=== PATIENT | female | born 1960 | race Caucasian/White ===

== ENCOUNTER 2017-02-14 22:37 | Observation (INO) | payer BC, OTHER ==
--- NOTE | 2017-02-14 22:46 | EDM.PDOC ---
ED HPI GENERAL MEDICAL PROBLEM - General Stated Complaint: CHEST PAIN Time Seen by Provider: 02/14/17 22:42 - History of Present Illness INITIAL COMMENTS - FREE TEXT/NARRATIVE: HISTORY AND PHYSICAL: History of present illness: Patient is a 56-year-old white female presents with concern of acute right- sided chest pain with associated shortness breath she denies fever chills nausea vomiting G other concern she denies trauma patient recently finished a course of Levaquin for a right-sided pneumonia. Review of systems: As per history of present illness and below otherwise all systems reviewed and negative. Past medical history: As per history of present illness and as reviewed below otherwise noncontributory. Surgical history: As per history of present illness and as reviewed below otherwise noncontributory. Social history: No reported history of drug or alcohol abuse. Family history: As per history of present illness and as reviewed below otherwise noncontributory. Physical exam: HEENT: Atraumatic, normocephalic, pupils reactive, negative for conjunctival pallor or scleral icterus, mucous membranes moist, throat clear, neck supple, nontender, trachea midline. Lungs: Diminished right-sided splinting noted, breath sounds equal bilaterally, chest nontender. Heart: S1S2, regular, negative for clicks, rubs, or JVD. Abdomen: Soft, nondistended, nontender. Negative for masses or hepatosplenomegaly. Negative for costovertebral tenderness. Pelvis: Stable nontender. Genitourinary: Deferred. Rectal: Deferred. Extremities: Atraumatic, negative for cords or calf pain. Neurovascular unremarkable. Neuro: Awake, alert, oriented. Cranial nerves II through XII unremarkable. Cerebellum unremarkable. Motor and sensory unremarkable throughout. Exam nonfocal. Diagnostics: CBC CMP PT/INR troponin EKG CTA chest Therapeutics: IV O2 monitor aspirin 324 mg Impression: #1 right-sided chest pain Definitive disposition and diagnosis as appropriate pending reevaluation and review of above. right chest Pain Score (Numeric/FACES): 10 - Related Data Allergies Allergy/AdvReac Type Severity Reaction Status Date / Time povidone-iodine Allergy Swelling Verified 02/14/17 22:58 [From Betadine] soap [From Betadine] Allergy Swelling Verified 02/14/17 22:58 Pain medications Allergy Stomach Uncoded 10/13/14 16:45 Upset Home Meds: Home Meds Cholecalciferol (Vitamin D3) [Vitamin D3] 1,000 unit PO DAILY 10/13/14 [History] Estradiol 2 mg PO QAM 10/13/14 [History] Glimepiride 4 mg PO BIDMEALS 10/13/14 [History] Montelukast Sodium 10 mg PO BEDTIME 10/13/14 [History] Pantoprazole Sodium 40 mg PO BEDTIME 10/13/14 [History] Pedi Multivit #22/Vit D3/Vit K [Multivitamins Chewables Tablet] 1 tab PO DAILY 10/13/14 [History] metFORMIN HCl [Metformin HCl] 250 mg PO BEDTIME 10/13/14 [History] Fish Oil/[place]-3 Fatty Acids [Fish Oil] 1 cap PO DAILY 10/18/14 [History] Losartan/Hydrochlorothiazide [Losartan-HCTZ 50-12.5 MG] 1 tab PO DAILY 10/18/14 [History] Acetaminophen/HYDROcodone [[place] 325-10 MG] 1 - 2 tab PO Q4H PRN #80 tablet 04/04 [Rx] Celecoxib [CeleBREX] 200 mg PO DAILY #30 cap 10/20/14 [Rx] Docusate Sodium [Colace] 100 mg PO BID #60 cap 10/20/14 [Rx] Gabapentin [Neurontin] 300 mg PO BEDTIME #30 cap 10/20/14 [Rx] Rivaroxaban [Xarelto] 10 mg PO DAILY #12 tablet 10/20/14 [Rx] traMADol [Ultram] 100 mg PO Q6H PRN #80 tablet 10/20/14 [Rx] Past Medical History Other Respiratory History: History of smoking for 15 yrs, QUIT 20 yrs ago, Sleep apnea with machine (will bring) Other Gastrointestinal History: Heartburn reports controlled with Pantoprazole Other Musculoskeletal History: Right hip pain, related to compensating for pain in knee, 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 love has fused 'grown over well') Social & Family History - Tobacco Use Smoking Status *Q: Former Smoker Years of Tobacco use: 15 - Recreational Drug Use Recreational Drug Use: No Drug Use in Last 12 Months: No ED ROS GENERAL - Review of Systems Review Of Systems: ROS reveals no pertinent complaints other than HPI. ED EXAM, GENERAL - Physical Exam Exam: See Below (See dictation) Course - Vital Signs Last Recorded V/S: Last Vital Signs Temp 36.4 C 02/14/17 22:37 Pulse 88 02/14/17 23:25 Resp 18 02/14/17 23:25 BP 131/86 02/14/17 23:25 Pulse Ox 98 02/14/17 23:25 - Orders/Labs/Meds Orders: Active Orders 24 hr Category Date Time Status Cardiac Monitoring [RC] . DIRECTED Care 02/14/17 22:47 Active EKG Documentation Completion [RC] STAT Care 02/14/17 22:47 Active Oxygen Therapy, ED [RC] ASDIRECTED Care 02/14/17 23:06 Active CTA Chest W WO Contrast [Ang Chest] [CT] Stat Exams 02/14/17 23:03 Taken URINALYSIS W/MICROSCOPIC [UA W/MICROSCOPIC] [URIN] Stat Lab 02/14/17 22:48 Uncollected Sodium Chloride 0.9% [Saline Flush] Med 02/14/17 23:06 Active 10 ml FLUSH ASDIRECTED PRN Sodium Chloride 0.9% [Saline Flush] Med 02/14/17 23:06 Active 2.5 ml FLUSH ASDIRECTED PRN Saline Lock Insert [OM.PC] Stat Oth 02/14/17 23:06 Ordered Medication Orders Sodium Chloride (Saline Flush) 10 ml FLUSH ASDIRECTED PRN PRN Reason: Keep Vein Open Sodium Chloride (Saline Flush) 2.5 ml FLUSH ASDIRECTED PRN PRN Reason: Keep Vein Open Labs: Laboratory Tests 02/14/17 02/14/17 02/14/17 Range/Units 22:55 22:55 22:55 WBC 10.36 (4.0-11.0) K/uL RBC 4.97 (4.30-5.90) M/uL Hgb 14.1 (12.0-16.0) g/dL Hct 41.6 (36.0-46.0) % MCV 83.7 (80.0-98.0) fL MCH 28.4 (27.0-32.0) pg MCHC 33.9 (31.0-37.0) g/dL RDW Std Deviation 41.5 (28.0-62.0) fl RDW Coeff of Nat 14 (11.0-15.0) % Plt Count 221 (150-400) K/uL MPV 11.20 (7.40-12.00) fL Neut % (Auto) 63.4 (48.0-80.0) % Lymph % (Auto) 27.0 (16.0-40.0) % [place] % (Auto) 7.8 (0.0-15.0) % Eos % (Auto) 1.4 (0.0-7.0) % Baso % (Auto) 0.4 (0.0-1.5) % Neut # (Auto) 6.6 H (1.4-5.7) K/uL Lymph # (Auto) 2.8 H (0.6-2.4) K/uL [place] # (Auto) 0.8 (0.0-0.8) K/uL Eos # (Auto) 0.1 (0.0-0.7) K/uL Baso # (Auto) 0.0 (0.0-0.1) K/uL Nucleated RBC % 0.0 /100WBC Nucleated RBCs # 0 K/uL INR 1.01 (0.86-1.11) D-Dimer, Quantitative 0.79 H (0.0-0.52) mg/LFEU Sodium 136 (136-146) mmol/L Potassium 3.6 (3.5-5.1) mmol/L Chloride 100 (98-110) mmol/L Carbon Dioxide 25 (21-31) mmol/L BUN 17 (6.0-23.0) mg/dL Creatinine 1.0 (0.6-1.5) mg/dL Est Cr Clr Drug Dosing TNP Estimated GFR (MDRD) 56.9 ml/min Glucose 232 H (60-110) mg/dL Calcium 9.3 (8.8-10.8) mg/dL Total Bilirubin 0.2 (0.1-1.5) mg/dL AST 13 (5-40) IU/L ALT 19 (8-54) IU/L Alkaline Phosphatase 124 (40-150) Creatine Kinase 79 (9-236) IU/L CK-MB (CK-2) 1.5 (0-6.6) ng/ml Troponin I < 0.10 (0.0-0.29) NG/ML Total Protein 8.0 (6.0-8.0) g/dL Albumin 4.0 (3.5-5.0) g/dL Globulin 4.0 H (2.0-3.5) g/dL Albumin/Globulin Ratio 1.0 L (1.3-2.8) Meds: Medications Generic Name Dose Route Start Last Admin Trade Name Freq PRN Reason Stop Dose Admin Sodium Chloride 10 ml 02/14/17 23:06 Saline Flush FLUSH ASDIRECTED PRN Keep Vein Open Sodium Chloride 2.5 ml 02/14/17 23:06 Saline Flush FLUSH ASDIRECTED PRN Keep Vein Open Discontinued Medications Generic Name Dose Route Start Last Admin Trade Name Freq PRN Reason Stop Dose Admin Hydromorphone HCl 1 mg 02/14/17 23:16 02/14/17 23:34 Dilaudid IM 02/14/17 23:17 Not Given ONETIME ONE Hydromorphone HCl 1 mg 02/14/17 23:32 02/14/17 23:30 Dilaudid IV 02/14/17 23:33 1 mg ONETIME ONE Administration Lorazepam 1 mg 02/14/17 23:16 02/14/17 23:25 Ativan IVPUSH 02/14/17 23:17 1 mg ONETIME ONE Administration Departure - Departure Time of Disposition: 23:44 Disposition: Refer to Observation Condition: Good Clinical Impression: Chest pain, History of pneumonia - Discharge Information Referrals: PCP,None [Primary Care Provider] - - My Orders Last 24 Hours: My Active Orders 02/14/17 22:47 Cardiac Monitoring [RC] . DIRECTED EKG Documentation Completion [RC] STAT 02/14/17 22:48 URINALYSIS W/MICROSCOPIC [UA W/MICROSCOPIC] [URIN] Stat 02/14/17 23:03 CTA Chest W WO Contrast [Ang Chest] [CT] Stat 02/14/17 23:06 Oxygen Therapy, ED [RC] ASDIRECTED Sodium Chloride 0.9% [Saline Flush] 10 ml FLUSH ASDIRECTED PRN Sodium Chloride 0.9% [Saline Flush] 2.5 ml FLUSH ASDIRECTED PRN Saline Lock Insert [OM.PC] Stat - Assessment/Plan Last 24 Hours: My Active Orders 02/14/17 22:47 Cardiac Monitoring [RC] . DIRECTED EKG Documentation Completion [RC] STAT 02/14/17 22:48 URINALYSIS W/MICROSCOPIC [UA W/MICROSCOPIC] [URIN] Stat 02/14/17 23:03 CTA Chest W WO Contrast [Ang Chest] [CT] Stat 02/14/17 23:06 Oxygen Therapy, ED [RC] ASDIRECTED Sodium Chloride 0.9% [Saline Flush] 10 ml FLUSH ASDIRECTED PRN Sodium Chloride 0.9% [Saline Flush] 2.5 ml FLUSH ASDIRECTED PRN Saline Lock Insert [OM.PC] Stat
[2017-02-14] MEDS ORDERED: Sodium Chloride 0.9% 2.5 ML Syringe FLUSH PRN (23:06)
[2017-02-14] MEDS ORDERED: Sodium Chloride 0.9% 10 ML Syringe FLUSH PRN (23:06)
[2017-02-14] MEDS ORDERED: LORazepam 2 MG/ML MDV IVPUSH ONE (23:16)
[2017-02-14 23:22] LABS: CHLORIDE,CL 100 mmol/L (98-110); SODIUM,NA 136 mmol/L (136-146)
[2017-02-14] MEDS: HYDROmorphone 1 MG/ML Syringe IM ONE ×2 (23:31→23:34)
[2017-02-14] MEDS ORDERED: HYDROmorphone 1 MG/ML Syringe IV ONE (23:32)
[2017-02-14] MEDS ORDERED: Ondansetron 4 MG/2 ML SDV IVPUSH PRN (23:59)
[2017-02-14] MEDS ORDERED: Albuterol/Ipratropium 3.0-0.5 MG/3 ML Neb Soln NEB PRN (23:59)
[2017-02-15] MEDS ORDERED: Azithromycin 500 MG in Sodium Chloride 0.9% 250 ML IV SCH (00:15)
[2017-02-15] MEDS ORDERED: cefTRIAXone 1,000 MG VIAL IVPUSH SCH (00:15)
[2017-02-15] MEDS: cefTRIAXone 1 GM in Premix Bag 1 BAG IV SCH (00:55)
[2017-02-15] MEDS: Morphine 10 MG/ML Syringe IVPUSH PRN ×2 (04:14→09:03)
[2017-02-15 05:27] LABS: CHLORIDE,CL 103 mmol/L (98-110); SODIUM,NA 134 mmol/L (136-146)
[2017-02-15] MEDS: Insulin Aspart 100 Units/ML 3 ML Pen SUBCUT SCH ×3 (06:40→16:54)
[2017-02-15] MEDS ORDERED: Iopamidol 755 MG/ML 500 ML Multipack Bottle IVPUSH STA (06:53)
[2017-02-15] MEDS ORDERED: Albuterol 8 GM Inhaler INH PRN (08:26)
[2017-02-15] MEDS: Cholecalciferol (Vitamin D3) 1,000 Unit Tab PO SCH (08:53)
[2017-02-15] MEDS: Hydrochlorothiazide/Losartan 12.5-50 mg Tab PO SCH (08:53)
[2017-02-15] MEDS: Fish Oil/Omega-3 Fatty Acids 1 Gm Cap PO SCH (08:53)
--- NOTE | 2017-02-15 09:39 | PCM.HP ---
H&P History of Present Illness - General Date of Service: 02/15/17 Admit Problem/Dx: Admission Diagnosis/Problem Admission Diagnosis/Problem Chest pain Source of Information: Patient History Limitations: Reports: No Limitations - History of Present Illness Initial Comments - Free Text/Narative: This 56 year old female with pmh of DM type 2, ALCIRA with CPAP,GERD, hx of tobacco use quit 20 years ago, and multiple neck and spinal surgeries presented to the ED last evening with concerns of R sided chest pain and shortness of breath. She reports she has been treated sick Jan 29 with antibiotics for a R sided pneumonia along with ear infection. Initially she was start on Cefadroxil for PNA and ear infection Jan 29, which she had wait approximately 2 weeks to get checked out. She reports she then didn't really feel any better after finishing treatment and then went back. This is when she received a course of Levaquin, which she just finished 02/14. She continues to feel like she has not improved at home. She initially had some fevers at home, sinus congestion and ear pain along with scant R sided chest pain. The URI symptoms have improved, but the R sided chest pain has worsened and the general malaise and fatigue have not improved. She reports some hot and cold flashes at home, but no documented fever at home. She denies cough or sinus congestion. No sore throat. No left sided chest pain. In the ED no leukocytosis noted, VS all stable. D dimer was noted to be elevated slightly 0.79, CT angio was ordered and revealed. "No CT evidence of pulmonary emboli seen. There is a subpleural consolidation in the posterior right apex that measures 2.8 x 1.5 cm. This may represent a pneumonic infiltrate but followup radiographs are recommended to document resolution and exclude a pulmonary mass. Trace right pleural effusion noted". She was treated with Azithromycin and Rocephin. Troponin x2 have been negative and EKG SR. She was admitted for R sided chest pain and failed outpatient treatment of CAP. PCP, [facility] right chest Pain Score (Numeric/FACES): 5 - Related Data Allergies/Adverse Reactions: Allergies Allergy/AdvReac Type Severity Reaction Status Date / Time povidone-iodine Allergy Swelling Verified 02/14/17 22:58 [From Betadine] soap [From Betadine] Allergy Swelling Verified 02/14/17 22:58 Pain medications Allergy Stomach Uncoded 10/13/14 16:45 Upset Home Medications: Home Meds Cholecalciferol (Vitamin D3) [Vitamin D3] 1,000 unit PO DAILY 10/13/14 [History] Montelukast Sodium 10 mg PO BEDTIME 10/13/14 [History] Fish Oil/Red Oak-3 Fatty Acids [Fish Oil] 500 mg PO DAILY 10/18/14 [History] Losartan/Hydrochlorothiazide [Losartan-HCTZ 50-12.5 MG] 1 tab PO DAILY 10/18/14 [History] traMADol [Ultram] 100 mg PO Q6H PRN #80 tablet 10/20/14 [Rx] Albuterol Sulfate [Proair Respiclick] 2 puff IH ASDIRECTED PRN 02/15/17 [History ] Cefadroxil [Cefadroxil] 500 mg PO DAILY 02/15/17 [History] Empagliflozin [Jardiance] 10 mg PO DAILY 02/15/17 [History] Phentermine HCl 30 mg PO DAILY 02/15/17 [History] Saxagliptin HCl [Onglyza] 5 mg PO DAILY 02/15/17 [History] Terconazole 20 gm VG BEDTIME 02/15/17 [History] Past Medical History - Past Health History Medical/Surgical History: Denies Medical/Surgical History HEENT History: Reports: Impaired Vision, Other (See Below) Other HEENT History: wears glasses Cardiovascular History: Reports: None. Denies: Afib, Blood Clots/VTE/DVT, CAD, High Cholesterol, Hypertension, VT Respiratory History: Reports: Sleep Apnea (Uses CPAP at home.) Other Respiratory History: History of smoking for 15 yrs, QUIT 20 yrs ago Gastrointestinal History: Reports: [employer] History: Reports: Musculoskeletal History: Reports: Arthritis, Back Pain, Chronic Neurological History: Reports: None. Denies: CVA, TIA Endocrine/Metabolic History: Reports: Diabetes, Type II, Obesity/BMI 30+. Denies: Hypothyroidism Hematologic History: Reports: None - Infectious Disease History Infectious Disease History: Reports: Chicken Pox, Measles, Shingles - Past Surgical History Respiratory Surgical History: Reports: None GI Surgical History: Reports: Cholecystectomy Female Surgical History: Reports: Hysterectomy Endocrine Surgical History: Reports: None Neurological Surgical History: Reports: C-Spine (C5-7 fusion "cage"), Lumbar Spine Musculoskeletal Surgical History: Reports: Knee Replacement Social & Family History - Family History Family Medical History: Noncontributory - Tobacco Use Smoking Status *Q: Former Smoker Years of Tobacco use: 15 Used Tobacco, but Quit: Yes Month Tobacco Last Used: 20 yrs ago Second Hand Smoke Exposure: No - Caffeine Use Caffeine Use: Reports: Coffee Caffeine Use Comment: decaff - Alcohol Use Alcohol Use Frequency: Rarely, Socially - Recreational Drug Use Recreational Drug Use: No Drug Use in Last 12 Months: No - Living Situation & Occupation Living situation: Reports: Occupation: Employed H&P Review of Systems - Review of Systems: Review Of Systems: See Below General: Reports: Fever (no documented fever, but hot flashes), Chills, Malaise , Fatigue, Decreased Appetite HEENT: Reports: No Symptoms. Denies: Ear Pain, Headaches, Hearing Changes, Sinus Congestion, Sore Throat, Visual Changes Pulmonary: Reports: Shortness of Breath, Pleuritic Chest Pain (R sided when taking deep breath). Denies: Wheezing, Cough, Hemoptysis Cardiovascular: Reports: No Symptoms. Denies: Chest Pain, Edema, Lightheadedness, Syncope Gastrointestinal: Reports: Decreased Appetite. Denies: Abdominal Pain, Black Stool, Bloody Stool, Flatus, Nausea, Vomiting Genitourinary: Reports: No Symptoms. Denies: Dysuria, Frequency, Burning, Pain Musculoskeletal: Reports: No Symptoms. Denies: Neck Pain, Back Pain, Muscle Stiffness Skin: Reports: No Symptoms Psychiatric: Reports: No Symptoms. Denies: Confusion Neurological: Reports: No Symptoms. Denies: Confusion Hematologic/Lymphatic: Reports: No Symptoms. Denies: Anemia Exam - Exam Exam: See Below - Vital Signs Vital Signs: Last Vital Signs Temp 97.0 F 02/15/17 08:00 Pulse 84 02/15/17 08:00 Resp 16 02/15/17 08:00 BP 115/71 02/15/17 08:00 Pulse Ox 97 02/15/17 08:00 Weight: 105 kg - Exam Quality Assessment: Supplemental Oxygen, DVT Prophylaxis General: Alert, Oriented, Cooperative, Other (patient appears to not feel well.) HEENT: Conjunctiva Clear, Hearing Intact, Mucosa Moist & [place], Posterior Pharynx Clear, TMs Clear, Other (flushed cheeks noted) Neck: Supple, Trachea Midline, Full Range of Motion. No: Lymphadenopathy Lungs: Normal Respiratory Effort, Crackles (R mid lung ) Cardiovascular: Regular Rate, Regular Rhythm, Normal S1, Normal S2, Other (No chest pain to palpation of R sided chest wall. Hurts under R breast and inside. ) GI/Abdominal Exam: Normal Bowel Sounds, Soft, Non-Tender, No Organomegaly, No Distention, No Abnormal Bruit, No Mass, Pelvis Stable, Other (obese abdomen, negative amin's sign). No: Distended Extremities: Normal Inspection, Normal Range of Motion, Non-Tender, No Pedal Edema, Normal Capillary Refill - Patient Data Lab Results Last 24 hrs: Laboratory Results - last 24 hr 02/15/17 02/15/17 02/15/17 Range/Units 00:00 04:41 04:41 WBC 12.60 H (4.0-11.0) K/uL RBC 4.68 (4.30-5.90) M/uL Hgb 13.0 (12.0-16.0) g/dL Hct 39.0 (36.0-46.0) % MCV 83.3 (80.0-98.0) fL MCH 27.8 (27.0-32.0) pg MCHC 33.3 (31.0-37.0) g/dL RDW Std Deviation 41.0 (28.0-62.0) fl RDW Coeff of Nat 14 (11.0-15.0) % Plt Count 182 (150-400) K/uL MPV 11.90 (7.40-12.00) fL Nucleated RBC % 0.0 /100WBC Nucleated RBCs # 0 K/uL Sodium 134 L (136-146) mmol/L Potassium 4.0 (3.5-5.1) mmol/L Chloride 103 (98-110) mmol/L Carbon Dioxide 23 (21-31) mmol/L BUN 16 (6.0-23.0) mg/dL Creatinine 0.7 (0.6-1.5) mg/dL Est Cr Clr Drug Dosing 72.47 mL/min Estimated GFR (MDRD) > 60.0 ml/min Glucose 200 H (60-110) mg/dL POC Glucose (60-110) mg/dL Calcium 8.9 (8.8-10.8) mg/dL Troponin I (0.0-0.29) NG/ML Urine Color YELLOW Urine Appearance CLEAR Urine pH 6.0 (5.0-8.0) Ur Specific Loman <= 1.005 (1.001-1.035) Urine Protein NEGATIVE (NEGATIVE) mg/dL Urine Glucose (UA) >=1000 (NEGATIVE) mg/dL Urine Ketones NEGATIVE (NEGATIVE) mg/dL Urine Occult Blood NEGATIVE (NEGATIVE) Urine Nitrite NEGATIVE (NEGATIVE) Urine Bilirubin NEGATIVE (NEGATIVE) Urine Urobilinogen 0.2 (<2.0) EU/dL Ur Leukocyte Esterase NEGATIVE (NEGATIVE) Urine RBC 0-2 (0-2/HPF) Urine WBC 2-4 (0-5/HPF) Ur Epithelial Cells FEW (NONE-FEW) Urine Bacteria FEW (NEGATIVE) 02/15/17 02/15/17 Range/Units 04:41 06:19 WBC (4.0-11.0) K/uL RBC (4.30-5.90) M/uL Hgb (12.0-16.0) g/dL Hct (36.0-46.0) % MCV (80.0-98.0) fL MCH (27.0-32.0) pg MCHC (31.0-37.0) g/dL RDW Std Deviation (28.0-62.0) fl RDW Coeff of Nat (11.0-15.0) % Plt Count (150-400) K/uL MPV (7.40-12.00) fL Nucleated RBC % /100WBC Nucleated RBCs # K/uL Sodium (136-146) mmol/L Potassium (3.5-5.1) mmol/L Chloride (98-110) mmol/L Carbon Dioxide (21-31) mmol/L BUN (6.0-23.0) mg/dL Creatinine (0.6-1.5) mg/dL Est Cr Clr Drug Dosing mL/min Estimated GFR (MDRD) ml/min Glucose (60-110) mg/dL POC Glucose 136 H (60-110) mg/dL Calcium (8.8-10.8) mg/dL Troponin I < 0.10 (0.0-0.29) NG/ML Urine Color Urine Appearance Urine pH (5.0-8.0) Ur Specific Loman (1.001-1.035) Urine Protein (NEGATIVE) mg/dL Urine Glucose (UA) (NEGATIVE) mg/dL Urine Ketones (NEGATIVE) mg/dL Urine Occult Blood (NEGATIVE) Urine Nitrite (NEGATIVE) Urine Bilirubin (NEGATIVE) Urine Urobilinogen (<2.0) EU/dL Ur Leukocyte Esterase (NEGATIVE) Urine RBC (0-2/HPF) Urine WBC (0-5/HPF) Ur Epithelial Cells (NONE-FEW) Urine Bacteria (NEGATIVE) Result Diagrams: 02/15/17 04:41 02/15/17 04:41 *Q Meaningful Use (ADM) - VTE *Q VTE Criteria *Q: - Stroke *Q Stroke Criteria *Q: - AMI *Q AMI Criteria *Q: - Problem List (1) Right-sided chest pain SNOMED Code(s): 346618674 ICD Code: R07.9 - CHEST PAIN, UNSPECIFIED Status: Acute Current Visit: Yes (2) Community acquired pneumonia SNOMED Code(s): 534799891 ICD Code: J18.9 - PNEUMONIA, UNSPECIFIED ORGANISM Status: Acute Current Visit: Yes Qualifiers: Laterality: right Lung location: upper lobe of lung Qualified Code(s): J18.1 - Lobar pneumonia, unspecified organism (3) ALCIRA (obstructive sleep apnea) SNOMED Code(s): 21472400 ICD Code: G47.33 - OBSTRUCTIVE SLEEP APNEA (ADULT) (PEDIATRIC) Status: Chronic Current Visit: Yes (4) DM type 2 (diabetes mellitus, type 2) SNOMED Code(s): 26727812 ICD Code: E11.9 - TYPE 2 DIABETES MELLITUS WITHOUT COMPLICATIONS Status: Chronic Current Visit: Yes Qualifiers: Diabetes mellitus complication status: without complication Diabetes mellitus termite technician insulin use: without termite technician use Qualified Code(s): E11.9 - Type 2 diabetes mellitus without complications (5) History of tobacco use SNOMED Code(s): 6706601448828 ICD Code: Z87.891 - PERSONAL HISTORY OF NICOTINE DEPENDENCE Status: Chronic Current Visit: Yes Problem List Initiated/Reviewed/Updated: Yes Orders Last 24hrs: Active Orders 24 hr Category Date Time Status Antiembolic Devices [RC] PER UNIT ROUTINE Care 02/15/17 00:00 Active Blood Glucose Check, Bedside [RC] TIDAC Care 02/15/17 00:02 Active Oxygen Therapy [RC] PRN Care 02/14/17 23:59 Active RT Aerosol Therapy [RC] ASDIRECTED Care 02/15/17 00:00 Active Telemetry Monitoring [Cardiac Monitoring] [RC] . Care 02/15/17 00:22 Active DIRECTED VTE/DVT Education [RC] PER UNIT ROUTINE Care 02/14/17 23:59 Active Vital Signs [RC] Q4H Care 02/14/17 23:59 Active CULTURE BLOOD [BC] Stat Lab 02/15/17 00:24 Received CULTURE BLOOD [BC] Stat Lab 02/15/17 00:30 Received CULTURE SPUTUM + SMEAR [RM] Routine Lab 02/15/17 00:06 Uncollected TROPONIN I [CHEM] Q6H Lab 02/15/17 11:00 Ordered Albuterol [Ventolin HFA] Med 02/15/17 08:26 Active 2 gm INH ASDIRECTED PRN Albuterol/Ipratropium [DuoNeb 3.0-0.5 MG/3 ML] Med 02/14/17 23:59 Active 3 ml NEB Q4HRRT PRN Azithromycin [Zithromax] 500 mg Med 02/15/17 00:15 Active Sodium Chloride 0.9% [Normal Saline] 250 ml IV Q24H Cholecalciferol (Vitamin D3) [Vitamin D3] Med 02/15/17 09:00 Active 1,000 units PO DAILY Fish Oil/Red Oak-3 Fatty Acids [Fish Oil] Med 02/15/17 09:00 Active 1 gm PO DAILY Hydrochlorothiazide/Losartan [Hyzaar 50-12.5 MG] Med 02/15/17 09:00 Active 1 tab PO DAILY Insulin Aspart [NovoLOG] Med 02/15/17 07:30 Active See Protocol SUBCUT TIDAC Montelukast [Singulair] Med 02/15/17 21:00 Active 10 mg PO BEDTIME Morphine Med 02/14/17 23:59 Active 2 mg IVPUSH Q3H PRN Ondansetron [Zofran] Med 02/14/17 23:59 Active 4 mg IVPUSH Q4H PRN Patient's Own Medication [Ptom] Med 02/15/17 21:00 Active 1 each VAG BEDTIME cefTRIAXone [Rocephin in Dextrose,Iso-Osm 1 GM/50 ML] 1 Med 02/15/17 00:30 Active gm Premix Bag 1 bag IV Q24H Blood Culture x2 Reflex Set [OM.PC] Stat Oth 02/15/17 00:06 Ordered Sequential Compression Device [OM.PC] Per Unit Routine Oth 02/14/17 23:59 Ordered Resuscitation Status Routine Resus Stat 02/14/17 23:59 Ordered Medication Orders Albuterol (Ventolin Hfa) 2 gm INH ASDIRECTED PRN PRN Reason: Shortness of Breath Albuterol/Ipratropium (Duoneb 3.0-0.5 Mg/3 Ml) 3 ml NEB Q4HRRT PRN PRN Reason: Shortness Of Breath/wheezing Cholecalciferol (Vitamin D3) 1,000 units PO DAILY [facility] Last Admin: 02/15/17 08:53 Dose: 1,000 units Fish Oil (Fish Oil) 1 gm PO DAILY [facility] Last Admin: 02/15/17 08:53 Dose: 1 gm HCTZ/Losartan Potassium (Hyzaar 50-12.5 Mg) 1 tab PO DAILY [facility] Last Admin: 02/15/17 08:53 Dose: 1 tab Azithromycin 500 mg/ Sodium (Chloride) 250 mls @ 250 mls/hr IV Q24H [facility] Last Admin: 02/15/17 01:33 Dose: 250 mls/hr Ceftriaxone Sodium/Dextrose 1 (gm/ Premix) 50 mls @ 100 mls/hr IV Q24H [facility] Last Admin: 02/15/17 00:55 Dose: 100 mls/hr Insulin Aspart (Novolog) 0 unit SUBCUT TIDAC [place] PRN Reason: Protocol Last Admin: 02/15/17 06:40 Dose: Not Given Montelukast Sodium (Singulair) 10 mg PO BEDTIME [facility] Morphine Sulfate (Morphine) 2 mg IVPUSH Q3H PRN PRN Reason: Pain (severe 7-10) Stop: 02/15/17 23:59 Last Admin: 02/15/17 09:03 Dose: 2 mg Admin: 02/15/17 04:14 Dose: 2 mg Ondansetron HCl (Zofran) 4 mg IVPUSH Q4H PRN PRN Reason: Nausea Last Admin: 02/15/17 00:32 Dose: 4 mg Terconazole [ (Terconazole] 20 Gm) 1 each VAG BEDTIME [facility] Sodium Chloride (Saline Flush) 10 ml FLUSH ASDIRECTED PRN PRN Reason: Keep Vein Open Sodium Chloride (Saline Flush) 2.5 ml FLUSH ASDIRECTED PRN PRN Reason: Keep Vein Open Assessment/Plan Comment:: This 56 year old male admitted with suspected failed outpatient treatment of CAP and right sided chest pain 1. Chest pain: All right sided, troponins all negative, does not sound cardiac. Hurts with deep breathing. ACS ruled out 2. Suspected failed outpatient management of CAP: Infiltrate noted on CT angio, could this be sequela from recently treated pneumonia or failed outpatient management with 2 antibiotics. Influenza negative. With tobacco use history she was warned there may be more than pneumonia present. We recommend follow up with [facility] for possible biopsy of this area and repeat CT imaging to insure clearing. Patient is well aware of this and is agreeable for us to set up referral to [facility]. WBC did elevated slightly to 12, 600 this morning. Will continue Rocephin and Azithromycin and monitor overnight. Continues to have R sided chest pain with deep breathing and it causes SOB, because it "catches" and send shooting spasm like pain through this area. Tramadol started today, will trial this instead of Morphine. 3. DM type 2: Will hold PO meds and Continue with Novolov SSI, reports BS at home run 150-180s typically. 4. ALCIRA with CPAP use: Highly encouraged to clean/sterilize mask/tubing daily to insure she is not getting sick from dirty supplies. Will send new prescription for mask and supplies to [facility] today. S VTE prophylaxis: SCDs Dispo: possibly in am.
[2017-02-15] MEDS: traMADol 50 MG Tab PO PRN ×2 (15:18→22:15)
--- NOTE | 2017-02-15 15:56 | CT ---
EXAM DATE: 02/14/17 PATIENT'S AGE: 56 Patient: WILBER YEAGER Facility: [place], [place] Site . Site : 1960 Study: CT Chest Angio [id number]/28/2017 11:17:14 PM Ordering Physician: Karishma Skinner Final Report: INDICATION: Chest pain, shortness of breath TECHNIQUE: CT chest with i.v. contrast using pulmonary angiographic technique. Coronal and sagittal reformats were obtained. CONTRAST: 50 mL Isovue 370 COMPARISON: None FINDINGS: Cardiovascular: The pulmonary arteries are unremarkable in enhancement with no evidence of acute pulmonary embolism. The heart has an unremarkable appearance and size. No sign of aneurysm or dissection in the thoracic aorta. Mediastinum: No mass or adenopathy seen. Lungs: Moderate mosaic attenuation is present bilaterally and may be due to small airways disease with lobular air-trapping. There is a subpleural consolidation in the posterior right apex that measures 2.8 x 1.5 cm. Pleura and pericardium: Trace right pleural effusion noted. No significant pericardial effusion is present. Chest wall and axilla: No mass or adenopathy seen. Bones: Unremarkable for age. Upper abdomen: Unremarkable. IMPRESSIONS: 1. No CT evidence of pulmonary emboli seen. 2. There is a subpleural consolidation in the posterior right apex that measures 2.8 x 1.5 cm. This may represent a pneumonic infiltrate but followup radiographs are recommended to document resolution and exclude a pulmonary mass. 3. Trace right pleural effusion noted. Dictated by Garett Grayson MD @ 02/14/2017 11:29:43 PM Dictated by: Garett Grayson MD @ 02/14/2017 23:29:57 (Electronic Signature) Report Signed by Proxy. JEAN
[2017-02-15] MEDS ORDERED: TERCONAZOLE VAG SCH (21:00)
[2017-02-15] MEDS ORDERED: Montelukast 10 MG Tab PO SCH (21:00)
[2017-02-16] MEDS ORDERED: Azithromycin 500 MG in Sodium Chloride 0.9% 250 ML IV SCH (00:15)
[2017-02-16] MEDS: cefTRIAXone 1 GM in Premix Bag 1 BAG IV SCH (01:21)
[2017-02-16 06:08] LABS: CHLORIDE,CL 103 mmol/L (98-110); SODIUM,NA 139 mmol/L (136-146)
[2017-02-16] MEDS: Insulin Aspart 100 Units/ML 3 ML Pen SUBCUT SCH ×2 (06:31→11:24)
[2017-02-16] MEDS: Cholecalciferol (Vitamin D3) 1,000 Unit Tab PO SCH (08:13)
[2017-02-16] MEDS: traMADol 50 MG Tab PO PRN (08:13)
[2017-02-16] MEDS: Fish Oil/Omega-3 Fatty Acids 1 Gm Cap PO SCH (08:13)
[2017-02-16] MEDS: Hydrochlorothiazide/Losartan 12.5-50 mg Tab PO SCH (08:14)
[2017-02-16 12:26] VITALS: BP 132/74
--- NOTE | 2017-02-16 14:00 | PCM.DCSUM1 ---
Discharge Summary - Discharge Data Discharge Date: 02/16/17 Discharge Disposition: Home, Self-Care 01 Condition: Good - Patient Summary/Data Hospital Course: 56 year old female with pmh of DM type 2, ALCIRA with CPAP,GERD, hx of tobacco use quit 20 years ago, who presented with right sided pleuritic chest pain, shortness of breath, cough, fevers and myalgias. She has already completed antibiotics of Cefadroxil and levaquin for pneumonia but has had minimal improvement in hers symptoms. In ED she had a CT angio which revealed no PE but reported subpleural consolidation in the posterior right apex that measures 2.8 by 1.5 cm. She was admitted for failure of outpatient treatment of pneumonia. She was given Azithromycin and Rocephin with improvement of her respiratory symptoms. [facility] and is to have follow up in [place] to insure continued resolution of symptoms and radiological findings. - Patient Instructions Diet: Diabetic Diet Activity: As Tolerated Notify Provider of: Fever, Increased Pain - Discharge Plan Prescriptions/Med Rec: Azithromycin [IMW: Azithromycin] 250 mg PO DAILY #6 tab Home Medications: Home Meds Cholecalciferol (Vitamin D3) [Vitamin D3] 1,000 unit PO DAILY 10/13/14 [History] Montelukast Sodium 10 mg PO BEDTIME 10/13/14 [History] Fish Oil/[place]-3 Fatty Acids [Fish Oil] 500 mg PO DAILY 10/18/14 [History] Losartan/Hydrochlorothiazide [Losartan-HCTZ 50-12.5 MG] 1 tab PO DAILY 10/18/14 [History] traMADol [Ultram] 100 mg PO Q6H PRN #80 tablet 10/20/14 [Rx] Albuterol Sulfate [Proair Respiclick] 2 puff IH ASDIRECTED PRN 02/15/17 [History ] Empagliflozin [Jardiance] 10 mg PO DAILY 02/15/17 [History] Phentermine HCl 30 mg PO DAILY 02/15/17 [History] Saxagliptin HCl [Onglyza] 5 mg PO DAILY 02/15/17 [History] Terconazole 20 gm VG BEDTIME 02/15/17 [History] Azithromycin [IMW: Azithromycin] 250 mg PO DAILY #6 tab 02/16/17 [Rx] Forms: ED Department Discharge Referrals: Rylie Huang PA-C [Ordering Only Provider] - 03/01/17 11:00 am - Patient Data Vitals - Most Recent: Last Vital Signs Temp 36.7 C 02/16/17 12:00 Pulse 77 02/16/17 12:00 Resp 20 02/16/17 12:00 BP 132/74 02/16/17 12:00 Pulse Ox 97 02/16/17 12:00 Weight - Most Recent: 105 kg I&O - Last 24 hours: Intake & Output 02/15/17 02/16/17 02/16/17 22:59 06:59 14:59 Intake Total 1550 1590 Output Total 3250 1750 Balance -1700 -160 Lab Results - Last 24 hrs: Laboratory Results - last 24 hr 02/15/17 02/16/17 02/16/17 Range/Units 16:04 05:02 05:02 WBC 6.91 (4.0-11.0) K/uL RBC 4.66 (4.30-5.90) M/uL Hgb 13.0 (12.0-16.0) g/dL Hct 39.6 (36.0-46.0) % MCV 85.0 (80.0-98.0) fL MCH 27.9 (27.0-32.0) pg MCHC 32.8 (31.0-37.0) g/dL RDW Std Deviation 42.3 (28.0-62.0) fl RDW Coeff of Nat 14 (11.0-15.0) % Plt Count 190 (150-400) K/uL MPV 11.70 (7.40-12.00) fL Neut % (Auto) 52.3 (48.0-80.0) % Lymph % (Auto) 37.5 (16.0-40.0) % [place] % (Auto) 7.1 (0.0-15.0) % Eos % (Auto) 2.5 (0.0-7.0) % Baso % (Auto) 0.6 (0.0-1.5) % Neut # (Auto) 3.6 (1.4-5.7) K/uL Lymph # (Auto) 2.6 H (0.6-2.4) K/uL [place] # (Auto) 0.5 (0.0-0.8) K/uL Eos # (Auto) 0.2 (0.0-0.7) K/uL Baso # (Auto) 0.0 (0.0-0.1) K/uL Nucleated RBC % 0.0 /100WBC Nucleated RBCs # 0 K/uL Sodium 139 (136-146) mmol/L Potassium 4.2 (3.5-5.1) mmol/L Chloride 103 (98-110) mmol/L Carbon Dioxide 27 (21-31) mmol/L BUN 16 (6.0-23.0) mg/dL Creatinine 0.7 (0.6-1.5) mg/dL Est Cr Clr Drug Dosing 72.47 mL/min Estimated GFR (MDRD) > 60.0 ml/min Glucose 145 H (60-110) mg/dL POC Glucose 113 H (60-110) mg/dL Calcium 8.8 (8.8-10.8) mg/dL 02/16/ Range/Units 06:29 WBC (4.0-11.0) K/uL RBC (4.30-5.90) M/uL Hgb (12.0-16.0) g/dL Hct (36.0-46.0) % MCV (80.0-98.0) fL MCH (27.0-32.0) pg MCHC (31.0-37.0) g/dL RDW Std Deviation (28.0-62.0) fl RDW Coeff of Nat (11.0-15.0) % Plt Count (150-400) K/uL MPV (7.40-12.00) fL Neut % (Auto) (48.0-80.0) % Lymph % (Auto) (16.0-40.0) % [place] % (Auto) (0.0-15.0) % Eos % (Auto) (0.0-7.0) % Baso % (Auto) (0.0-1.5) % Neut # (Auto) (1.4-5.7) K/uL Lymph # (Auto) (0.6-2.4) K/uL [place] # (Auto) (0.0-0.8) K/uL Eos # (Auto) (0.0-0.7) K/uL Baso # (Auto) (0.0-0.1) K/uL Nucleated RBC % /100WBC Nucleated RBCs # K/uL Sodium (136-146) mmol/L Potassium (3.5-5.1) mmol/L Chloride (98-110) mmol/L Carbon Dioxide (21-31) mmol/L BUN (6.0-23.0) mg/dL Creatinine (0.6-1.5) mg/dL Est Cr Clr Drug Dosing mL/min Estimated GFR (MDRD) ml/min Glucose (60-110) mg/dL POC Glucose 146 H (60-110) mg/dL Calcium (8.8-10.8) mg/dL JENNIFER Results - Last 24 hrs: Microbiology 02/15/17 00:30 Aerobic Blood Culture - Preliminary Blood - Venous - Lab Draw NO GROWTH AFTER 1 DAY Anaerobic Blood Culture - Preliminary NO GROWTH AFTER 1 DAY 02/15/17 00:24 Aerobic Blood Culture - Preliminary Blood - Venous NO GROWTH AFTER 1 DAY Anaerobic Blood Culture - Preliminary NO GROWTH AFTER 1 DAY 02/15/17 09:54 Influenza Type A Antigen Screen - Final Nasopharyngeal Swab - Nare, Right NEGATIVE INFLUENZA A VIRUS AG Influenza Type B Antigen Screen - Final NEGATIVE INFLUENZA B VIRUS AG Med Orders - Current: Current Medications Albuterol (Ventolin Hfa) 2 gm INH ASDIRECTED PRN PRN Reason: Shortness of Breath Albuterol/Ipratropium (Duoneb 3.0-0.5 Mg/3 Ml) 3 ml NEB Q4HRRT PRN PRN Reason: Shortness Of Breath/wheezing Cholecalciferol (Vitamin D3) 1,000 units PO DAILY [facility] Last Admin: 02/16/17 08:13 Dose: 1,000 units Fish Oil (Fish Oil) 1 gm PO DAILY [place] Last Admin: 02/16/17 08:13 Dose: 1 gm HCTZ/Losartan Potassium (Hyzaar 50-12.5 Mg) 1 tab PO DAILY [facility] Last Admin: 02/16/17 08:14 Dose: 1 tab Ceftriaxone Sodium/Dextrose 1 (gm/ Premix) 50 mls @ 100 mls/hr IV Q24H [place] Last Admin: 02/16/17 01:21 Dose: 100 mls/hr Azithromycin 500 mg/ Sodium (Chloride) 250 mls @ 250 mls/hr IV Q24H [facility] Last Admin: 02/16/17 00:08 Dose: 250 mls/hr Insulin Aspart (Novolog) 0 unit SUBCUT TIDAC [place] PRN Reason: Protocol Last Admin: 02/16/17 11:24 Dose: Not Given Montelukast Sodium (Singulair) 10 mg PO BEDTIME [place] Last Admin: 02/15/17 20:26 Dose: 10 mg Ondansetron HCl (Zofran) 4 mg IVPUSH Q4H PRN PRN Reason: Nausea Last Admin: 02/15/17 00:32 Dose: 4 mg Terconazole [ (Terconazole] 20 Gm) 1 each VAG BEDTIME [facility] Last Admin: 02/15/17 20:26 Dose: Not Given Sodium Chloride (Saline Flush) 10 ml FLUSH ASDIRECTED PRN PRN Reason: Keep Vein Open Sodium Chloride (Saline Flush) 2.5 ml FLUSH ASDIRECTED PRN PRN Reason: Keep Vein Open Tramadol HCl (Ultram) 50 mg PO Q6H PRN PRN Reason: Pain Last Admin: 02/16/17 08:13 Dose: 50 mg Discontinued Medications Ceftriaxone Sodium (Rocephin) 1,000 mg IVPUSH Q24H [facility] Last Admin: 02/15/17 02:37 Dose: Not Given Hydromorphone HCl (Dilaudid) 1 mg IM ONETIME ONE Stop: 02/14/17 23:17 Last Admin: 02/14/17 23:34 Dose: Not Given Hydromorphone HCl (Dilaudid) 1 mg IV ONETIME ONE Stop: 02/14/17 23:33 Last Admin: 02/14/17 23:30 Dose: 1 mg Azithromycin 500 mg/ Sodium (Chloride) 250 mls @ 250 mls/hr IV Q24H [facility] Last Admin: 02/15/17 01:33 Dose: 250 mls/hr Iopamidol (Isovue Multipack-370 (76%)) 50 ml IVPUSH ONETIME STA Stop: 02/15/17 06:54 Last Admin: 02/15/17 06:54 Dose: 50 ml Lorazepam (Ativan) 1 mg IVPUSH ONETIME ONE Stop: 02/14/17 23:17 Last Admin: 02/14/17 23:25 Dose: 1 mg Morphine Sulfate (Morphine) 2 mg IVPUSH Q3H PRN PRN Reason: Pain (severe 7-10) Stop: 02/15/17 23:59 Last Admin: 02/15/17 09:03 Dose: 2 mg - Exam General: Reports: Alert, Oriented Lungs: Reports: Clear to Auscultation, Normal Respiratory Effort Cardiovascular: Reports: Regular Rate, Regular Rhythm GI/Abdominal Exam: Soft, Non-Tender Extremities: No Pedal Edema *Q Meaningful Use (DIS) - VTE *Q VTE Criteria *Q: - Stroke *Q Stroke Criteria *Q: - AMI *Q AMI Criteria *Q:
== END 2017-02-16 14:45 | disposition home or self-care (01) ==
LOC: MW.ED 22:37 → MW.MS 23:44
PROVIDERS: ADMIT Internal Medicine; ATTEND Internal Medicine
DX: R07.81 Pleurodynia (principal); E11.9 Type 2 diabetes mellitus without complications; G47.33 Obstructive sleep apnea (adult) (pediatric); K21.9 Gastro-esophageal reflux disease without esophagitis; M19.90 Unspecified osteoarthritis, unspecified site; E66.9 Obesity, unspecified; J18.9 Pneumonia, unspecified organism; G89.29 Other chronic pain; M54.9 Dorsalgia, unspecified; Z87.891 Personal history of nicotine dependence; Z79.899 Other long term (current) drug therapy; Z91.048 Other nonmedicinal substance allergy status; Z68.30 Body mass index [BMI] 30.0-30.9, adult; Z90.710 Acquired absence of both cervix and uterus; Z90.49 Acquired absence of other specified parts of digestive tract; Z79.1 Long term (current) use of non-steroidal anti-inflammatories (NSAID); Z79.84 Long term (current) use of oral hypoglycemic drugs; Z99.89 Dependence on other enabling machines and devices; Z88.8 Allergy status to other drugs, medicaments and biological substances; Z98.1 Arthrodesis status; Z96.659 Presence of unspecified artificial knee joint
CPT/HCPCS: 36415; 71275; 80048; 80053; 81001; 82550; 82553; 82962; 84484; 85025; 85027; 85379; 85610; 87040; 87804; 93005; 96365; 96366; 96367; 96374; 96375; 96376; 99285; A9270; G0378; J0456; J0696; J1170; J2060; J2270; J2405; J7050; Q9967; 99284

== ENCOUNTER 2024-01-13 07:28 | Day surgery (SDC) | payer MEDICARE, OTHER ==
[~2024-01-13 07:28] MED LIST: propofoL 500 MG/50 ML 50 ML ONE
[2024-01-13] MEDS: Lactated Ringers 1,000 ML IV SCH (07:45)
[2024-01-13] MEDS ORDERED: Lactated Ringers 1,000 ML IV SCH (09:45)
[2024-01-13 11:09] VITALS: BP 115/78; PULSE 68
== END 2024-01-13 10:30 | disposition home or self-care (01) ==
LOC: MW.SDS 07:28
PROVIDERS: ATTEND Surgery
DX: Z12.11 Encounter for screening for malignant neoplasm of colon (principal); D12.5 Benign neoplasm of sigmoid colon; D12.2 Benign neoplasm of ascending colon; E11.9 Type 2 diabetes mellitus without complications; K21.9 Gastro-esophageal reflux disease without esophagitis; E78.00 Pure hypercholesterolemia, unspecified; Z87.891 Personal history of nicotine dependence; Z79.84 Long term (current) use of oral hypoglycemic drugs; Z79.899 Other long term (current) drug therapy; Z79.85 Long-term (current) use of injectable non-insulin antidiabetic drugs
CPT/HCPCS: 45380; 45385; 88305; J2704; J7120